=== PATIENT | female | born 1975 ===

== ENCOUNTER → 2018-02-27 21:20 | Outpatient (REF) | payer SELFPAY ==
[2018-02-27 22:31] LABS: Rubella Antibody IgG 22.1 IU/mL
[2018-03-01 14:36] LABS: Rubeola Measles IgG > 300.00 AU/mL (< 25.00)
== END ==
LOC: LAB 21:20
PROVIDERS: Visit Provider General Practice
DX: Z11.3 Encounter for screening for infections with a predominantly sexual mode of transmission (principal)
CPT/HCPCS: 86480; 86735; 86762; 86765

== ENCOUNTER → 2018-03-03 21:16 | Outpatient (REF) | payer SELFPAY ==
[2018-03-07 11:08] LABS: QuantiFERON TB NEGATIVE (Negative)
== END ==
LOC: LAB 21:16
PROVIDERS: PCP General Practice; Visit Provider General Practice
DX: Z11.3 Encounter for screening for infections with a predominantly sexual mode of transmission (principal)
CPT/HCPCS: 86480